=== PATIENT | female | born 1980 | race Caucasian/White ===

== ENCOUNTER 2017-06-09 10:04 | Emergency (ER) | payer BC ==
[~2017-06-09] VITALS: Ht 154.9 cm; Wt 83.9 kg
[2017-06-09 10:05] VITALS: BP_SYST 134
[2017-06-09 10:35] VITALS: BP_SYST 134
== END 2017-06-09 10:35 | disposition home or self-care (01) ==
LOC: SED 10:04
DX: S61.012A Laceration without foreign body of left thumb without damage to nail, initial encounter (principal); W26.0XXA Contact with knife, initial encounter; Y93.89 Activity, other specified; Y92.89 Other specified places as the place of occurrence of the external cause; Y99.8 Other external cause status
CPT/HCPCS: 99283

== ENCOUNTER 2018-07-25 15:02 | Emergency (ER) | payer BC ==
[~2018-07-25] VITALS: Ht 154.9 cm; Wt 77.1 kg
[2018-07-25] MEDS ORDERED: KETOROLAC TROMETHAMINE 60 MG/2 ML VIAL IM ONE (15:15)
[2018-07-25 15:31] VITALS: BP_SYST 134
[2018-07-25 17:27] VITALS: BP_SYST 128
== END 2018-07-25 17:27 | disposition home or self-care (01) ==
LOC: SED 15:02
DX: S46.912A Strain of unspecified muscle, fascia and tendon at shoulder and upper arm level, left arm, initial encounter (principal); S16.1XXA Strain of muscle, fascia and tendon at neck level, initial encounter; S50.11XA Contusion of right forearm, initial encounter; S70.11XA Contusion of right thigh, initial encounter; Z90.49 Acquired absence of other specified parts of digestive tract; Z90.89 Acquired absence of other organs; R03.0 Elevated blood-pressure reading, without diagnosis of hypertension; V43.52XA Car driver injured in collision with other type car in traffic accident, initial encounter; Y93.89 Activity, other specified; Y92.410 Unspecified street and highway as the place of occurrence of the external cause; Y99.8 Other external cause status
CPT/HCPCS: 72125; 73030; 81025; 96372; 99284; J1885